=== PATIENT | female | born 1975 | race Caucasian/White ===

== ENCOUNTER 2018-09-15 10:20 | Outpatient (REF) | payer OTHER, SELFPAY ==
[2018-09-15 22:32] LABS: Hemoglobin A1C 5.8 % (4.5-6.2)
[2018-09-15 23:10] LABS: ALT 30 U/L (12-78); AST 18 U/L (15-37); Albumin 3.8 g/dL (3.4-5.0); Alkaline Phosphatase 69 U/L (46-116); Anion Gap 14.1 mmol/L (3-11); BUN 11 mg/dL (7-18); Bilirubin, Total 0.9 mg/dL (0.2-1.0); CO2 21.9 mmol/L (21.0-32.0); CREATININE 0.82 mg/dL (0.55-1.02); Calcium 8.9 mg/dL (8.5-10.1); Calculated LDL 113 mg/dL; Chloride 105 mmol/L (98-107); Cholesterol 179 mg/dL (50-200); Glucose 99 mg/dL (70-100); HDL Cholesterol 43 mg/dL (40-60); Potassium 4.4 mmol/L (3.5-5.1); Sodium 141 mmol/L (136-145); TSH (W/Ref FT4) 3.68 uIU/mL (0.358-3.74); Total Protein 7.1 g/dL (6.4-8.2); Triglyceride 117 mg/dL (30-150)
== END 2018-09-15 10:40 ==
LOC: NCHCN 10:20
PROVIDERS: PCP Family Medicine; Visit Provider Family Medicine
DX: Z00.00 Encounter for general adult medical examination without abnormal findings (principal); E88.81 Metabolic syndrome and other insulin resistance; R73.02 Impaired glucose tolerance (oral); E66.01 Morbid (severe) obesity due to excess calories
CPT/HCPCS: 80053; 80061; 83721; 83036; 84443

== ENCOUNTER 2021-09-27 16:27 | Outpatient (REF) | payer SELFPAY ==
[2021-09-29 14:56] LABS: COVID-19 RT-PCR UVMMC Result Negative (Negative)
== END 2021-09-27 16:28 | disposition home or self-care (01) ==
LOC: NCHCN 16:27
PROVIDERS: PCP Family Medicine; Visit Provider Registered Nurse
DX: R09.89 Other specified symptoms and signs involving the circulatory and respiratory systems (principal); Z20.822 Contact with and (suspected) exposure to COVID-19
CPT/HCPCS: U0003

== ENCOUNTER 2022-12-16 18:47 | Outpatient (REF) | payer BC, SELFPAY ==
[2022-12-16 19:01] LABS: Anion Gap 6.7 mmol/L (3-11); BUN 12 mg/dL (7-18); CO2 27.3 mmol/L (21.0-32.0); CREATININE 0.8 mg/dL (0.55-1.02); Calcium 9.3 mg/dL (8.5-10.1); Calculated LDL 106 mg/dL (<100); Chloride 103 mmol/L (98-107); Cholesterol 189 mg/dL (<200); Estimated GFR 91.97 (mL/min/1.73m2); Glucose 106 mg/dL (74-106); HDL Cholesterol 41 mg/dL (40-60); Potassium 4.3 mmol/L (3.5-5.1); Sodium 137 mmol/L (136-145); Triglyceride 213 mg/dL (<150)
[2022-12-16 19:15] LABS: Hemoglobin A1C 5.9 % (<5.7)
== END 2022-12-16 18:48 | disposition home or self-care (01) ==
LOC: NCHCN 18:47
PROVIDERS: PCP Family Medicine; Visit Provider Family Medicine
DX: I10 Essential (primary) hypertension (principal); F33.9 Major depressive disorder, recurrent, unspecified; E66.01 Morbid (severe) obesity due to excess calories; R73.03 Prediabetes; Z00.00 Encounter for general adult medical examination without abnormal findings
CPT/HCPCS: 80048; 80061; 83036

== ENCOUNTER 2023-01-03 10:52 | Outpatient (REF) | payer BC, SELFPAY ==
--- NOTE | 2023-01-03 09:30 | PAPFT_PTH ---
PATIENT: Elizabeth Tellez LOC: [facility] U#:[id number] AGE/SX: 47/F ROOM: RE01/03/[address]: Jeimy Ramírez : 1975 BED: DIS: 01/03/2023 SPEC #: [id number] RECD: 01/03/23 16:45 STATUS: ADRIÁN REQ #: [id number] USHA: 01/03/23 09:[address]: Jeimy Ramírez DEPT: [facility] Cytology RECD BY: Kerry Mcgrath Tissues: 1 - CX/ENDOCX FOR PAP SMEARS Procedures: PAP THIN PREP/[facility] Screening HPV DNA PROBE Comments: [id number]
== END 2023-01-03 10:53 | disposition home or self-care (01) ==
LOC: NCHCN 10:52
PROVIDERS: PCP Family Medicine; Visit Provider Family Medicine
DX: Z12.4 Encounter for screening for malignant neoplasm of cervix (principal); Z11.51 Encounter for screening for human papillomavirus (HPV)
CPT/HCPCS: 88142; 87624

== ENCOUNTER 2024-01-12 16:33 | Outpatient (REF) | payer BC, SELFPAY ==
[2024-01-12 17:38] LABS: Anion Gap 12.7 mmol/L (3-11); BUN 8 mg/dL (7-18); CO2 24.3 mmol/L (21.0-32.0); CREATININE 0.8 mg/dL (0.55-1.02); Calcium 9.1 mg/dL (8.5-10.1); Chloride 105 mmol/L (98-107); Glucose 97 mg/dL (74-106); Potassium 4.2 mmol/L (3.5-5.1); Sodium 142 mmol/L (136-145)
== END 2024-01-12 16:34 | disposition home or self-care (01) ==
LOC: NCHCN 16:33
PROVIDERS: PCP Family Medicine; Visit Provider Family Medicine
DX: R60.9 Edema, unspecified (principal)
CPT/HCPCS: 80048